=== PATIENT | female | born 1935 | race Caucasian/White ===

== ENCOUNTER 2017-05-08 07:47 | Emergency (ER) | payer MEDICARE, OTHER ==
[~2017-05-08] VITALS: Ht 160 cm; Wt 65.0 kg
[~2017-05-08 07:47] MED LIST: LEVO125T3 PO; OXYC20 PO; TAB-TAB PO; VITA-13 PO
[2017-05-08 07:51] VITALS: BP 174/74; PULSE 75; RESP 18; TEMP 98; O2SAT 96
[2017-05-08] MEDS ORDERED: LEVO75TA3 PO (08:02)
[2017-05-08 08:03] VITALS: BP 188/84; PULSE 78; RESP 20; O2SAT 98
[2017-05-08] MEDS ORDERED: IBUPROFEN 600 MG TAB PO ONE (08:30)
[2017-05-08] MEDS ORDERED: ACETAMINOPHEN/HYDROcodone 325 MG/5 MG TAB PO ONE (08:30)
--- NOTE | 2017-05-08 09:16 | RADRPT ---
EXAM DATE/TIME: 05/08/2017 08:39 [facility] COMPARISON: No previous studies available for comparison. INDICATIONS : Right proximal humerus pain after falling. MEDICAL HISTORY : None. SURGICAL HISTORY : None. ENCOUNTER: Initial ACUITY: 2 days PAIN SCORE: 6/10 LOCATION: Right humerus FINDINGS: Two view examination of the right humerus demonstrates a free fragment fracture of the humeral neck. The humeral shaft and elbow joint are intact. No significant soft tissue abnormalities. CONCLUSION: 3 fragment fracture of the right humeral head and neck. Otherwise intact right humeral shaft. Raij Hawk MD on May 08, 2017 at 9:15 Board Certified Radiologist. This report was verified electronically.
--- NOTE | 2017-05-08 09:16 | RADRPT ---
EXAM DATE/TIME: 05/08/2017 08:36 [facility] COMPARISON: No previous studies available for comparison. INDICATIONS : Right shoulder pain after falling. MEDICAL HISTORY : None. SURGICAL HISTORY : None. ENCOUNTER: Initial ACUITY: 2 days PAIN SCORE: 6/10 LOCATION: Right shoulder FINDINGS: Multiple view examination of the right shoulder demonstrates a comminuted 3 fragment fracture of the humeral head. Fracture extends through the surgical neck. There is a large avulsion fragment containi ng the greater tuberosity. Humeral head remains within the glenoid fossa. Acromioclavicular joint is intact. CONCLUSION: 3 fragment fracture of the right humeral head without dislocation Raji Hawk MD on May 08, 2017 at 9:13 Board Certified Radiologist. This report was verified electronically.
--- NOTE | 2017-05-08 10:04 | PD ---
HPI Chief Complaint: Fall Time Seen by Provider: 08:17 Travel History International Travel<30 days: No Contact w/Intl Traveler<30days: No Traveled to known affect area: No History of Present Illness HPI 81-year-old female came to the emergency room with history of trip and fall last night while she was walking on an uneven sidewalk. Patient landed on the right shoulder. Since then her right shoulder and upper arm has been very painful. She has been unable to move her upper extremity because of the pain. Patient is right handed. Pain worsens upon trying to move the arm mostly on abduction at the shoulder joint and better when she holds her arm against her chest without moving it. No tingling or numbness. Patient did hit her head slightly and has a small abrasion. But no loss of consciousness. No nausea vomiting. Patient took some Advil last night for the pain with minimal relief. The pain is back again this morning and worse. PFSH Past Medical History Narrative Medical List of her past medical, surgical, social and family history is reviewed from the nursing note. Arthritis: Yes Cancer: Yes (COLON, THYROID) Cardiovascular Problems: No Chemotherapy: No Diabetes: No Endocrine: Yes Genitourinary: No Immune Disorder: No Musculoskeletal: Yes Neurologic: No Psychiatric: No Reproductive: No Respiratory: No Radiation Therapy: No Thyroid Disease: Yes Tetanus Vaccination: > 5 Years Influenza Vaccination: No Past Surgical History Abdominal Surgery: Yes (PARTIAL COLON RESECT.) Endocrine Surgery: Yes (THYROID/PARATHYROIDECTOMY) Pacemaker: No Other Surgery: Yes Social History Alcohol Use: Yes (1 GLASS WINE DAILY ) Tobacco Use: No Substance Use: No Allergies-Medications (Allergen,Severity, Reaction): Coded Allergies: Sulfa (Sulfonamide Antibiotics) (Unverified Allergy, Severe, NAUSEA, 05/08) atorvastatin (Unverified Allergy, Mild, MUSCSLE ACHE, 05/08/17) Comments List of her allergies reviewed from the nursing note. Reported Meds & Prescriptions Reported Meds & Active Scripts Active Colace (Docusate Sodium) 100 Mg Capsule 1 Cap PO BID Ibuprofen 400 Mg Tab 400 Mg PO Q6H PRN Hydrocodone-Acetaminophen 7.5-300 Mg Tab 1 Tab PO Q6H PRN Reported Levothyroxine (Levothyroxine Sodium) 75 Mcg Tab 75 Mcg PO DAILY Narrative Medication List of her home medications reviewed from the nursing note. Review of Systems Except as stated in HPI: all other systems reviewed are Neg Musculoskeletal: Positive: Limited ROM, Pain Physical Exam Narrative GENERAL: Awake, alert, moderate distress SKIN: Focused skin assessment warm/dry. HEAD: Atraumatic. Normocephalic. EYES: Pupils equal and round. No scleral icterus. No injection or drainage. ENT: No nasal bleeding or discharge. Mucous membranes pink and moist. NECK: Trachea midline. No JVD. CARDIOVASCULAR: Regular rate and rhythm. No murmur appreciated. RESPIRATORY: No accessory muscle use. Clear to auscultation. Breath sounds equal bilaterally. GASTROINTESTINAL: Abdomen soft, non-tender, nondistended. Hepatic and splenic margins not palpable. MUSCULOSKELETAL: No obvious deformities. No clubbing. No cyanosis. No edema. Swelling at the right shoulder joint. Significantly decreased range of motion at the shoulder joint due to pain. Distal neurovascular intact. NEUROLOGICAL: Awake and alert. No obvious cranial nerve deficits. Motor grossly within normal limits. Normal speech. PSYCHIATRIC: Appropriate mood and affect; insight and judgment normal. Data Data Last Documented VS Vital Signs Date Time Temp Pulse Resp B/P (MAP) Pulse Ox O2 Delivery O2 Flow Rate FiO2 05/08/17 10:24 05/08/17 08:03 78 20 98 Room Air 05/08/17 07:51 98.0 Orders Orders Shoulder, Complete (>2vws) (05/08/17 ) Humerus (Min 2vws) (05/08/17 ) Acetamin-Hydrocod 325-5 Mg (Alda 5-325 (05/08/17 08:30) Ibuprofen (Motrin) (05/08/17 08:30) Sling Cradle Arm (05/08/17 ) Ed Discharge Order (05/08/17 10:03) Sling Cradle Arm (05/08/17 ) MDM Medical Decision Making Medical Screen Exam Complete: Yes Emergency Medical Condition: Yes Medical Record Reviewed: Yes Differential Diagnosis Shoulder fracture, shoulder dislocation Narrative Course 9:45 AM x-ray suggestive of humeral head fracture without dislocation. Patient will be put in an arm sling. I have given her hydrocodone and Motrin for pain earlier. I've given her detailed instructions and follow-up with orthopedics. She will be discharged home. Procedures EKG Prior to Arrival: No Diagnosis Primary Impression: Humerus fracture Qualified Codes: S42.201A - Unspecified fracture of upper end of right humerus , initial encounter for closed fracture Additional Impression: Fall Qualified Codes: W19.XXXA - Unspecified fall, initial encounter Referrals: Alvaro Lewis MD 2 days Additional Instructions: Please call the orthopedist was name and number been provided to you on the discharge paper as soon as possible so that you have an appointment with him soon. Apply ice pack on the shoulder joint 10 minutes off 10 minutes on. Take the medication as per the prescription direction. Try to keep the arm in an elevated position as much as possible to minimize swelling of the arm distally. Return to the ER if the condition worsens or any other new concerns. You should have the arm in the arm sling at all times until you have been seen by the orthopedist. The pain medication will make you groggy. Do not drive while on them. Hydrocodone can make it constipated and hence laxative prescription has also been given. Take it while you are taking the pain medicine. Med/Other Pt SpecificInfo: Prescription(s) given Scripts Docusate Sodium (Colace) 100 Mg Capsule 1 CAP PO BID, #10 Prov: Ethan Taylor MD 05/08/17 Ibuprofen (Ibuprofen) 400 Mg Tab 400 MG PO Q6H Y for PAIN SCALE 1 TO 5, #30 TAB 0 Refills Prov: Ethan Taylor MD 05/08/17 Hydrocodone-Acetaminophen (Hydrocodone-Acetaminophen) 7.5-300 Mg Tab 1 TAB PO Q6H Y for PAIN, #20 TAB 0 Refills Prov: Ethan Taylor MD 05/08/17 Disposition: 01 DISCHARGE HOME Condition: Stable Ethan Taylor MD May 08, 2017 10:04
[2017-05-08] MEDS ORDERED: IBUP400T20 PO (10:09)
[2017-05-08] MEDS ORDERED: HYDR-2376 PO (10:09)
[2017-05-08] MEDS ORDERED: COLA100C PO (10:11)
== END 2017-05-08 10:26 | disposition home or self-care (01) ==
LOC: NEPC 07:47
DX: S42.201A Unspecified fracture of upper end of right humerus, initial encounter for closed fracture (principal); W01.0XXA Fall on same level from slipping, tripping and stumbling without subsequent striking against object, initial encounter; E07.9 Disorder of thyroid, unspecified
CPT/HCPCS: 73030; 73060; 99283